=== PATIENT | female | born 1995 | race Caucasian/White ===

== ENCOUNTER 2016-11-18 11:25 | Emergency (ER) | payer MEDICAID ==
[~2016-11-18] VITALS: Ht 157.5 cm; Wt 50.8 kg
[2016-11-18 11:30] VITALS: BP_SYST 124
[2016-11-18 13:39] VITALS: BP_SYST 125
== END 2016-11-18 13:39 | disposition home or self-care (01) ==
LOC: SED 11:25
DX: R05 Cough (principal); R06.02 Shortness of breath
CPT/HCPCS: 71020-TC; 81025; 99284

== ENCOUNTER 2019-10-17 18:44 | Emergency (ER) | payer MEDICAID ==
[~2019-10-17] VITALS: Ht 157.5 cm; Wt 45.8 kg
[2019-10-17 18:56] VITALS: BP_SYST 127
[2019-10-17 20:41] VITALS: BP_SYST 141
[2019-10-17 21:18] LABS: BILIRUBIN,URINE NEGATIVE (NEGATIVE); BLOOD, URINE NEGATIVE (NEGATIVE); CLARITY/URINE CLOUDY (CLEAR); COLOR,URINE YELLOW (YELLOW); GLUCOSE,URINE NEGATIVE (NEGATIVE); KETONES,URINE 2+ (NEGATIVE); LEUKOCYTE ESTERASE ,URINE 1+ (NEGATIVE); NITRITE, URINE NEGATIVE (NEGATIVE); PROTEIN URINE NEGATIVE (NEGATIVE); UROBILINOGEN,URINE 0.2 (0.2-1.0)
[2019-10-17 21:18] LABS: BASOPHILS % (AUTO) 0.3 % (0.0-2.0); EOSINOPHILS # (AUTO) 0.1 K/uL (0.0-0.4); EOSINOPHILS % (AUTO) 1.9 % (0.0-4.0); HEMATOCRIT 42.3 % (36-48); HEMOGLOBIN 14.2 g/dL (12.0-16.0); LYMPHOCYTES # (AUTO) 1.8 K/uL (1.0-5.5); LYMPHOCYTES % (AUTO) 23.9 % (20.5-51.5); MEAN CORPUSCULAR HEMOGLOBIN 33 pg (27-31); MEAN CORPUSCULAR HGB CONC 34 % (32-36); MEAN CORPUSCULAR VOLUME 98 fL (79.0-98.0); MONOCYTES # (AUTO) 0.4 K/uL (0.0-1.0); MONOCYTES % (AUTO) 5.4 % (1.7-9.3); NEUTROPHILS # (AUTO) 5.2 K/uL (1.8-7.7); NEUTROPHILS % (AUTO) 68.5 % (40.0-70.0); PLATELET COUNT (AUTO) 316 K/uL (130-430); RED BLOOD CELL COUNT(AUTO) 4.33 MIL/uL (4.2-6.2); RED CELL DISTRIBUTION WIDTH 13.1 % (9.0-15.0); WHITE BLOOD COUNT (AUTO) 7.6 K/uL (4.8-10.8)
[2019-10-17 21:31] LABS: CALCIUM 9.3 mg/dL (8.4-11.0); CREATININE 0.68 mg/dL (0.55-1.30); POTASSIUM 3.4 mmol/L (3.5-5.1)
[2019-10-17 21:36] LABS: ALBUMIN 4.5 g/dL (3.4-4.8); TOTAL BILIRUBIN 0.5 mg/dL (0.0-1.0)
--- NOTE | 2019-10-17 21:41 | NUR ---
Pt called from waiting room, no answer
--- NOTE | 2019-10-17 21:41 | NUR ---
Patient left without being seen.
[2019-10-17 21:42] LABS: BACTERIA,URINE MODERATE /HPF (None Seen); RBC,URINE 0-3 /HPF (0-3)
[2019-10-17 21:44] LABS: MUCUS,URINE None Seen /LPF (None Seen)
[2019-10-17 21:45] LABS: URINE AMORPHOUS PHOSPHATES 2+ /HPF (None Seen)
== END 2019-10-17 21:40 | disposition left against medical advice (07) ==
LOC: SED 18:44
DX: R10.31 Right lower quadrant pain (principal); R11.10 Vomiting, unspecified; Z53.21 Procedure and treatment not carried out due to patient leaving prior to being seen by health care provider
CPT/HCPCS: 36415; 80053; 81000-TC; 85025; 87086

== ENCOUNTER 2019-11-22 09:52 | Emergency (ER) | payer MEDICAID ==
[~2019-11-22] VITALS: Ht 157.5 cm; Wt 47.6 kg
[2019-11-22 10:09] VITALS: BP_SYST 141
[2019-11-22] MEDS ORDERED: KETOROLAC TROMETHAMINE 60 MG/2 ML VIAL IM ONE ×2 (10:45→11:11)
[2019-11-22 10:52] LABS: BASOPHILS % (AUTO) 0.2 % (0.0-2.0); EOSINOPHILS # (AUTO) 0.2 K/uL (0.0-0.4); EOSINOPHILS % (AUTO) 2.5 % (0.0-4.0); HEMATOCRIT 38.7 % (36-48); LYMPHOCYTES % (AUTO) 11.4 % (20.5-51.5); MEAN CORPUSCULAR HEMOGLOBIN 33 pg (27-31); MEAN CORPUSCULAR HGB CONC 34 % (32-36); MEAN CORPUSCULAR VOLUME 98 fL (79.0-98.0); MONOCYTES # (AUTO) 0.4 K/uL (0.0-1.0); MONOCYTES % (AUTO) 4.8 % (1.7-9.3); NEUTROPHILS % (AUTO) 81.1 % (40.0-70.0); PLATELET COUNT (AUTO) 320 K/uL (130-430); RED BLOOD CELL COUNT(AUTO) 3.97 MIL/uL (4.2-6.2); RED CELL DISTRIBUTION WIDTH 13.3 % (9.0-15.0); WHITE BLOOD COUNT (AUTO) 8.6 K/uL (4.8-10.8)
[2019-11-22] MEDS ORDERED: ONDANSETRON 4 MG ODT TAB PO ONE (11:00)
[2019-11-22 11:02] LABS: CALCIUM 8.9 mg/dL (8.4-11.0); CREATININE 0.72 mg/dL (0.55-1.30); POTASSIUM 3.9 mmol/L (3.5-5.1)
[2019-11-22 11:07] LABS: ALBUMIN 3.9 g/dL (3.4-4.8); TOTAL BILIRUBIN 0.5 mg/dL (0.0-1.0)
[2019-11-22 12:46] VITALS: BP_SYST 141
== END 2019-11-22 12:46 | disposition home or self-care (01) ==
LOC: SED 09:52
DX: R10.84 Generalized abdominal pain (principal)
CPT/HCPCS: 36415; 80053; 81002; 81025; 83690-TC; 85025; 96372; 99283; J1885; Q0162